=== PATIENT | male | born 2000 | race Caucasian/White ===

== ENCOUNTER 2020-11-09 05:28 | Day surgery (SDC) | payer BC ==
[2020-11-04 11:22] VITALS: BMI 30.8
[2020-11-09] MEDS ORDERED: ISOSULFAN BLUE 50 MG/5 ML VIAL SQ ONE (09:00)
[2020-11-09] MEDS ORDERED: PROPOFOL 20 ML ONE ×2 (09:23)
[2020-11-09] MEDS ORDERED: MIDAZOLAM HCL 2 MG/2 ML SINGLE DOSE VIAL ONE ×2 (09:24)
[2020-11-09] MEDS ORDERED: DEXAMETHASONE SOD PHOSPHATE 4 MG/1 ML VIAL ONE (09:47)
[2020-11-09] MEDS ORDERED: ceFAZolin SODIUM 1 GM VIAL ONE (09:47)
[2020-11-09] MEDS ORDERED: EPHEDRINE SULFATE/0.9% NACL/PF 50 MG/10 ML SYRINGE NR ONE (09:50)
[2020-11-09] MEDS ORDERED: ceFAZolin 2 GRAM PREMIX BAG IVPB ONE (09:51)
[2020-11-09] MEDS ORDERED: ONDANSETRON 4 MG/2 ML VIAL IVPUSH PRN (11:08)
[2020-11-09] MEDS ORDERED: ACETAMINOPHEN 500 MG TABLET (FP) PO PRN (11:08)
[2020-11-09] MEDS ORDERED: ONDANSETRON 4 MG/2 ML VIAL IVPB PRN (11:08)
[2020-11-09] MEDS ORDERED: oxyCODONE HCL 5 MG TABLET PO PRN (11:08)
[2020-11-09] MEDS ORDERED: LACTATED RINGERS SOLUTION 1,000 ML IV SCH (11:15)
[2020-11-09] MEDS: ACETAMINOPHEN 1000 MG/100 ML VIAL (NON FORMULARY) IVPB ONE ×3 (12:30→17:08)
[2020-11-09] MEDS: ACETAMINOPHEN INJECTION 100 ML IVPB ONE ×2 (12:30→13:30)
[2020-11-09 14:10] VITALS: BP 138/75; PULSE 64; TEMP 97.8
[2020-11-09] MEDS ORDERED: CEFAZOLIN 1 GM in DEXTROSE 5%-WATER - 50 ML IVPB SCH (18:00)
== END 2020-11-09 18:06 | disposition home or self-care (01) ==
LOC: JASUSAT 05:28 → J6S 13:46 → JASUSAT 18:06
PROVIDERS: ATTEND Surgery
PROC: 0HBV0ZZ Excision of Bilateral Breast, Open Approach (ICD-10-PCS; principal; 2020-11-09 09:30)
DX: N62 Hypertrophy of breast (principal)
CPT/HCPCS: 88305-TC; 94760; J0131